=== PATIENT | female | born 1980 | race Caucasian/White ===

== ENCOUNTER 2018-06-26 15:02 | Emergency (ER) | payer MEDICAID ==
[~2018-06-26] VITALS: Ht 167.6 cm; Wt 90.9 kg
[2018-06-26 15:38] LABS: URINE HCG NEGATIVE (NEG)
[2018-06-26 15:43] LABS: BASOPHILS # (AUTO) 0.1 X10'3 (0-0.2); BASOPHILS % (AUTO) 0.8 % (0-1); EOSINOPHILS # (AUTO) 0.2 X10'3 (0-0.9); EOSINOPHILS % (AUTO) 1.8 % (0-6); HEMATOCRIT 45.1 % (35.0-45.0); HEMOGLOBIN 15.5 g/dl (12.0-16.0); LYMPHOCYTES # (AUTO) 1.9 X10'3 (1.1-4.8); LYMPHOCYTES % (AUTO) 19.9 % (21-51); MEAN CORPUSCULAR HEMOGLOBIN 37.9 PG (27.0-31.0); MEAN CORPUSCULAR HGB CONC 34.3 g/dL (33.0-36.5); MEAN CORPUSCULAR VOLUME 110.5 FL (78-98); MEAN PLATELET VOLUME 7.5 FL (7.4-10.4); MONOCYTES # (AUTO) 0.7 X10'3 (0-0.9); MONOCYTES % (AUTO) 6.9 % (2-12); NEUTROPHILS # (AUTO) 6.8 X10'3 (1.8-7.7); NEUTROPHILS % (AUTO) 70.6 % (42-75); PLATELET COUNT 269 X10'3 (140-440); RED BLOOD COUNT 4.08 X10'6 (4.20-5.60); WHITE BLOOD COUNT 9.6 X10'3 (4.5-11.0)
[2018-06-26 15:55] LABS: INR 1.1 INR; PROTHROMBIN TIME 10.9 SECONDS (9.0-12.0)
[2018-06-26 16:00] LABS: ALANINE AMINOTRANSFERASE 182 U/L (12-78); ALBUMIN 4.2 G/DL (3.4-5.0); ALKALINE PHOSPHATASE 84 IU/L (46-116); ANION GAP 10 (8-16); ASPARTATE AMINO TRANSFERASE 242 U/L (10-37); BILIRUBIN,TOTAL 1.3 MG/DL (0.1-1.0); BLOOD UREA NITROGEN 6 MG/DL (7-18); CALCIUM 9.6 MG/DL (8.5-10.1); CHLORIDE 101 MMOL/L (99-107); CREATININE 0.75 MG/DL (0.40-0.90); GLUCOSE 113 MG/DL (70-104); POTASSIUM 4.1 MMOL/L (3.5-5.1); SODIUM 137 MMOL/L (135-145); TOTAL PROTEIN 8.6 G/DL (6.4-8.2); eGFR 86 ML/MIN
[2018-06-26 16:04] LABS: PLATELET ESTIMATE NORMAL; POLYCHROMASIA FEW
[2018-06-26 16:05] LABS: STOMATOCYTES 2+
[2018-06-26 16:23] LABS: COLOR,URINE YELLOW (Yellow); GLUCOSE, URINE NEGATIVE (Neg); KETONES,URINE NEGATIVE (Neg); LEUKOCYTE ESTERASE ,URINE NEGATIVE (Neg); NITRITES, URINE NEGATIVE (Neg); OCCULT BLOOD,URINE MODERATE (Neg); PROTEIN,URINE NEGATIVE (Neg); UROBILINOGEN,URINE 0.2 E.U/dL (0.2-1.0)
[2018-06-26 16:25] LABS: CLARITY,URINE SLIGHTLY CLOUDY (Clear); UA COLLECTION TYPE CLN CATCH MIDSTREAM
[2018-06-26 16:31] LABS: BACTERIA,URINE FEW /HPF (Neg); RBC,URINE 0-2 /HPF (0-2); SQUAMOUS EPITHELIAL CELL,UR FEW /LPF (FEW); WBC,URINE 0-4 /HPF (0-4)
[2018-06-26 17:50] VITALS: BP 152/95
[2018-06-26] MEDS ORDERED: ketorolac tromethamine 15mg/ml inj. IM ONE (18:00)
[2018-06-26] MEDS ORDERED: METR500T PO (19:04)
[2018-06-26] MEDS ORDERED: ONDA4TAB6 PO (19:04)
[2018-06-26] MEDS ORDERED: ondansetron 4mg rapidly disintigrating tab PO ONE (19:05)
[2018-06-26] MEDS ORDERED: HYDROcodone/acetaminophen 5mg/325mg tablet PO ONE (19:05)
== END 2018-06-26 19:30 | disposition home or self-care (01) ==
LOC: ER 15:03
DX: K52.9 Noninfective gastroenteritis and colitis, unspecified (principal); K76.0 Fatty (change of) liver, not elsewhere classified; F17.200 Nicotine dependence, unspecified, uncomplicated; F12.90 Cannabis use, unspecified, uncomplicated
CPT/HCPCS: 36415; 74176; 80053; 81001; 81025; 85025; 85610; 96372; 99284; J1885

== ENCOUNTER 2018-11-08 11:54 | Emergency (ER) | payer MEDICAID ==
[~2018-11-08] VITALS: Ht 154.9 cm; Wt 75.0 kg
[~2018-11-08 11:54] MED LIST: ONDA4TAB6 PO
[2018-11-08 11:58] VITALS: BP 133/91
[2018-11-08] MEDS ORDERED: ondansetron 4mg rapidly disintigrating tab PO ONE (12:50)
[2018-11-08] MEDS ORDERED: HYDROcodone/acetaminophen 5mg/325mg tablet PO ONE (12:50)
[2018-11-08] MEDS ORDERED: LIDOcaine 1% w/EPI 1:100,000 30ml vial (MDV) ONE (13:00)
[2018-11-08] MEDS ORDERED: TETanus/Pertussis (Acell)/Diphther VAC/PF (Tdap-Adult) 0.5ml syringe IM ONE (13:25)
--- NOTE | 2018-11-08 14:02 | NUR ---
assisted Donna KEN with I&D of abscess to lower abd, pt judah well, dressed with guaze and paper tape
[2018-11-08] MEDS ORDERED: SULF1TAB49 PO (14:14)
[2018-11-08] MEDS ORDERED: CEPH500C5 PO (14:14)
[2018-11-08] MEDS ORDERED: HYDR-3965 PO (14:20)
== END 2018-11-08 14:23 | disposition home or self-care (01) ==
LOC: ER 11:54
DX: L02.214 Cutaneous abscess of groin (principal); L03.314 Cellulitis of groin; N73.9 Female pelvic inflammatory disease, unspecified; F41.9 Anxiety disorder, unspecified; F12.90 Cannabis use, unspecified, uncomplicated; Z98.890 Other specified postprocedural states; Z79.899 Other long term (current) drug therapy
CPT/HCPCS: 10060; 90471; 90715; 99284; J2405